=== PATIENT | male | born 1960 | race Caucasian/White ===

== ENCOUNTER → 2023-08-02 | Outpatient (REF) | payer MEDICARE, BC, SELFPAY | LOC: DHSLP | PROVIDERS: ATTENDING PHYSICIAN Internal Medicine Critical Care Medicine; FAMILY PHYSICIAN Family Medicine | DX: G47.33 Obstructive sleep apnea (adult) (pediatric) (principal) | CPT/HCPCS: 95800 ==

== ENCOUNTER → 2023-08-22 12:06 | Outpatient (REF) | payer MEDICARE, BC, SELFPAY | LOC: HWRAD 12:06 | PROVIDERS: ATTENDING PHYSICIAN Family Medicine | DX: I10 Essential (primary) hypertension (principal); M54.59 Other low back pain | CPT/HCPCS: 72110 ==

== ENCOUNTER 2024-09-09 02:30 | Emergency (ER) | payer MEDICARE, BC, SELFPAY ==
[2024-09-09 02:37] VITALS: BP 188/98
--- NOTE | 2024-09-09 03:14 | ED.GENMED ---
History of Present Illness
General
Chief Complaint: Nose Bleed
Source: patient
Time Seen by Provider: 09/09/24 02:49
History of Present Illness
History of Present Illness:
Pleasant 64-year-old male who presents the emergency department with bleeding. He states that he has been having headaches for the last week. He reports that he developed a nosebleed several times throughout the week. The nosebleed seem to have
stopped towards the end of the week. This morning patient awakened with bleeding nostril again. Patient packed his nose with cotton and bleeding seem to have stopped. Patient denies being on blood thinner. Patient does feel weak and is concerned
about blood loss.
Past History
Past History
ED Past Medical History: HTN, Other (Pancreatitis December 2010) and Other (pancreatitis)
ED Past Surgical History: None and Orthopedic
Social History
Tobacco: Former smoker
Alcohol: Occasional
Personal:
Living: with family
Family History
Family History: Hypertension; Negative Diabetes, Early CAD, Asthma or Cancer
Review of Systems
Review of Systems
Allergies reviewed?: Yes
All Other Systems: ROS reviewed and negative except as documented in HPI and ROS
Constitutional: Reports no symptoms
EENT: Reports other (Epistaxis)
Respiratory: Reports no symptoms
Cardiac: Reports no symptoms
ABD/GI: Reports no symptoms
: Reports no symptoms
Musculoskeletal: Reports no symptoms
Skin: Reports no symptoms
Neurological: Reports no symptoms
Endocrine: Reports no symptoms
Hematologic/Lymphatic: Reports no symptoms
Psychiatric: Reports no symptoms
Phy Exam
General Physical Exam
General Presentation: well appearing and no apparent distress
General Skin: warm and dry
General Habitus: normal
General Mental: alert
General Hydration: appears well hydrated
ENT Exam
ENT Exam: EOMI and other (Cotton pledgets were removed and no obvious source of bleeding found.)
Eye Exam
Eye Exam: PERRL, cornea clear and conjunctiva normal
Cardiovascular Exam
Cardiovascular Exam: regular rate/rhythm, no edema, no murmur and normal peripheral pulses
Pulmonary Exam
Pulmonary Exam: lungs clear, no respiratory distress, no rales, no crackles, no rhonchi, no stridor, no wheezing and no cough
Gastrointestinal Exam
Gastrointestinal Exam: normal bowel sounds, non tender, soft, no organomegaly, no pulsatile mass and non distended
Neurological Exam
Neurological Exam: alert, oriented x3, no motor deficits and speech normal
Musculoskeletal Exam
Musculoskeletal Exam: full ROM and no edema
Skin Exam
Skin Exam: normal color, warm/dry, no rash and no petechia
Psychiatric Exam
Psychiatric Exam: normal mood/affect
Course
Orders/Labs/Results
Orders:
Orders
09/09/24 03:17
CT Head W/o Iv Contrast Urgent
Comment:
Reason For Exam: headache, nose bleed
CT Sinuses W/o Iv Contrast Urgent
Comment:
Reason For Exam: painful sinus, nose bleed
09/09/24 03:34
Complete Blood Count/With Diff Urgent
Comprehensive Metabolic Panel Urgent
Abnormal Lab Results
09/09/24
03:34
WBC 4.6 L 10^3/uL
(4.8-10.8)
RBC 4.55 L 10^6/uL
(4.70-6.10)
MPV 11.0 H fL
(7.4-10.4)
Immature Gran % 0.9 H %
(0-0.5)
BUN 22 H mg/dl
(9-20)
Glucose 115 H mg/dl
(70-99)
09/09/24 03:34
09/09/24 03:34
Vital Signs
Initial and Last Documented VS:
Initial Vital Signs
Pulse Resp BP Pulse Ox
80 20 188/98 98
09/09/24 02:37 09/09/24 02:37 09/09/24 02:37 09/09/24 02:37
Last Documented Vital Signs
Pulse Resp BP Pulse Ox
70 18 147/84 99
09/09/24 05:30 09/09/24 05:30 09/09/24 05:30 09/09/24 05:30
*Critical Care Note
Total Time (30-74mins, 75-104mins- exclusive of procedures): Not Applicable
Update Note
Update Note:
CT HEAD WITHOUT CONTRAST
CT SINUSES WITHOUT CONTRAST
COMPARISON: None
IMPRESSION:
CT HEAD:
No acute intracranial hemorrhage. No evidence of acute infarct.
No calvarial fracture.
Patchy subcortical white matter hypoattenuation most consistent with small vessel disease.
No mass effect or midline shift.
Ventricles are normal without hydrocephalus.
CT SINUSES:
Scattered paranasal sinus mucosal thickening.
No soft tissue abnormality.
Patient is resting comfortably.
Packing has been out since his arrival to the emergency department without any evidence of bleeding anterior or posteriorly.
Patient has been [id number] to CAT scan and has not had any issues.
Internal exam shows no evidence of the epistaxis.
Patient to follow-up with ENT.
ED Attending Note
-
Portions of this chart may have been created with voice recognition software.� Occasional wrong word or��sound alike� substitutions may have occurred due to the inherent limitations of voice recognition software.
Discharge Plan
Departure
Patient Disposition: Home (Routine Discharge)
Date of Disposition: 09/09/24
Time of Disposition: 04:52
Patient with high blood pressure during this ER visit?: Yes
Discharge Problem:
Acute anterior epistaxis
Instructions: Nosebleeds (DC), BLOOD PRESSURE
Prescriptions:
No Action
aspirin 81 MG tablet,chewable
81 mg PO DAILY
multivitamin [Akr-Rqlhdj-Coqnq] 1 EACH tablet
1 ea PO DAILY
ibuprofen [Advil] 200 MG tablet
400 mg PO PRN PRN (Reason: pain)
amlodipine 10 MG tablet
10 mg PO DAILY Qty: 30 0RF
acetaminophen [Tylenol Extra Strength] 500 MG tablet
500 mg PO Q4HPRN PRN (Reason: pain) Qty: 0 0RF
Xanax:
1 tab PO HS
Patient Comments:
pt unsure of dose
hydrocodone-acetaminophen 1 TABLET tablet
1 tab PO Q4HPRN PRN (Reason: pain ) Qty: 12 0RF
prednisone 10 MG tablet
10 mg PO .TAPER Qty: 30 0RF
Rx Instructions:
Take 40mg daily x3days, 30mg daily x3days,
20mg daily x3days, 10mg daily x3days.
lidocaine [Aspercreme (lidocaine)] 1 PATCH adhesive patch,medicated
1 patch S DAILY Qty: 10 0RF
Rx Instructions:
remove after 12 hrs
Referrals:
Arnaldo Aponte MD [Active] - Next open appointment
Lam Breen MD [Family Provider] -
Activity Restrictions/Additional Instructions:
It was a pleasure meeting you and taking part in your care. We hope for your continued healing and wellness.
Please read discharge instructions in their entirety. However, they are for general education and may not describe your exact diagnosis at discharge. Information on your ER visit and medical conditions were discussed with you along with appropriate
follow up information...
If indicated, please take your medications as instructed and indicated on discharge paperwork.
Please schedule a follow up appointment as directed. Call to schedule an appointment
Please return to the emergency department with ANY change in, persisting, or worsening of symptoms. If any of your symptoms do not improve, or persist, or become more severe within 6-12 hours, please return to the emergency department for further
care.
Please return to the emergency department if you develop a headache, neck pain/stiffness, fever greater than 100.4F, chest pain, shortness of breath, persistent nausea, vomiting, slurred speech, difficulty walking, numbness/tingling, weakness, signs
of infection or any other symptoms that are worrisome to you.
If you have any questions or concerns please do not hesitate to call the Hospital at or E-mail me directly at [email or web address]
Interventions
Interventions:
*Risk Screen - Suicide Last Done: 09/09/24 02:47
*General Assessment Last Done: 09/09/24 02:47
*Neglect/Abuse Screening Last Done: 09/09/24 02:47
*ED- Fall Risk Assessment Last Done: 09/09/24 02:47
*ED COVID-19 Vaccine History Last Done: 09/09/24 02:47
*Nursing Disposition Last Done: 09/09/24 05:30
ED-EENT Assessment Last Done: 09/09/24 02:47
Discharge Date and Time
Discharge Date/Time: 09/09/24 05:30
Print Language: INDONESIAN
[2024-09-09 03:50] LABS: % Basophils 0.6 % (0-2); % Eosinophils 2.6 % (0-6); % Immature Granulocytes 0.9 % (0-0.5); % Lymphocytes 27.5 % (20.5-51.1); % Monocytes 9.3 % (1.7-9.3); % Neutrophils 59.1 % (42.2-75.2); Absolute Eosinophils 0.1 10^3/uL (0-0.7); Absolute Lymphocytes 1.3 10^3/uL (1.2-3.4); Absolute Monocytes 0.4 10^3/uL (0.1-0.6); Absolute Neutrophils 2.7 10^3/uL (1.4-6.5); Hematocrit 39.9 % (39.0-52.0); Hemoglobin 13.9 g/dL (13.0-18.0); Mean Corp Hgb Conc. 34.8 g/dL (33.0-37.0); Mean Corpuscular Hgb 30.5 pg (27.0-31.0); Mean Corpuscular Volume 87.7 fL (80.0-94.0); Nucleated Red Blood Cells % 0 % (-); Platelet Count 183 10^3/uL (130-400); Red Blood Cell Count 4.55 10^6/uL (4.70-6.10); Red Cell Dist. Width 13.5 % (11.5-14.5); White Blood Cell Count 4.6 10^3/uL (4.8-10.8)
[2024-09-09 04:13] LABS: ALT (SGPT) 29 U/L (0-50); AST (SGOT) 22 U/L (17-59); Albumin 4.7 g/dl (3.5-5.0); Alkaline Phosphatase 83 U/L (38-126); Blood Urea Nitrogen 22 mg/dl (9-20); Calcium 9.7 mg/dl (8.4-10.2); Carbon Dioxide 25 mmol/L (22-30); Chloride 107 mmol/L (98-107); Glucose 115 mg/dl (70-99); Potassium 3.6 mmol/L (3.5-5.1); Sodium 143 mmol/L (135-145); Total Bilirubin 1.1 mg/dl (0.2-1.3); Total Protein 6.6 g/dl (6.3-8.2); eGFR > 60.00
[2024-09-09 04:25] VITALS: BP 147/84
[2024-09-09 05:30] VITALS: BP 147/84
== END 2024-09-09 05:30 | disposition home or self-care (01) ==
LOC: EMR 02:30
PROVIDERS: EMERGENCY PHYSICIAN Student in an Organized Health Care Education/Training Program; FAMILY PHYSICIAN Family Medicine
DX: R04.0 Epistaxis (principal); I10 Essential (primary) hypertension; Z87.891 Personal history of nicotine dependence
CPT/HCPCS: 99285; 70450; 70486; 80053; 85025

== ENCOUNTER → 2025-01-20 15:18 | Outpatient (REF) | payer MEDICARE, BC, SELFPAY | LOC: MRI 15:18 | PROVIDERS: ATTENDING PHYSICIAN Internal Medicine Gastroenterology; PRIMARYCARE PHYSICIAN Family Medicine | DX: K76.0 Fatty (change of) liver, not elsewhere classified (principal) | CPT/HCPCS: 74183; 76391; A9575 ==

== ENCOUNTER 2025-02-05 06:23 | Day surgery (SDC) | payer MEDICARE, BC, SELFPAY | END 2025-02-05 12:39 | disposition home or self-care (01) | LOC: GI 06:23 | PROVIDERS: ATTENDING PHYSICIAN Internal Medicine Gastroenterology | DX: R93.3 Abnormal findings on diagnostic imaging of other parts of digestive tract (principal); K29.70 Gastritis, unspecified, without bleeding; K29.80 Duodenitis without bleeding | CPT/HCPCS: 43239; 88305; 88342 ==